=== PATIENT | male | born 1985 | race Caucasian/White ===

== ENCOUNTER 2017-11-01 00:59 | Emergency (ER) | payer SELFPAY ==
[2017-11-01 01:37] LABS: #Basophils 0.1 thou/uL (0.0-0.2); #Eosinphils 0.2 thou/uL (0.0-0.7); #Lymphocytes 2.8 thou/uL (1.20-3.40); #Neutrophils 14.1 thou/uL (1.40-6.50); %Basophils 0.5 % (0.0-1.0); %Eosinophils 1.2 % (0.0-10.0); %Lymphocytes 15.2 % (21.0-51.0); %Monocytes 5.7 % (0.0-10.0); %Neutrophils 77.4 % (42.0-75.0); Hemoglobin 16.6 g/dL (14.0-18.0); Mean Corpuscular HGB CONC 34.2 g/dL (32.0-36.0); Mean Corpuscular Hemoglobin 31.3 pg (27.0-31.0); Mean Corpuscular Volume 91.5 fl (80.0-94.0); Platelet Count 283 thou/uL (130-400); RBC Distribution Width 12.1 % (11.5-14.5); Red Blood Cell (RBC) Count 5.31 mill/uL (4.70-6.10); White Blood Cell (WBC) Count 18.3 thou/uL (4.8-10.8)
[2017-11-01 01:49] LABS: INR-International Normal Ratio 1.1; PTT 27.5 SEC (22.9-36.1); Prothrombin Time 14.2 SEC (12.0-14.7)
[2017-11-01 01:54] LABS: ALT (SGPT) 58 U/L (8-55); AST (SGOT) 83 U/L (5-34); Albumin 4.6 g/dL (3.5-5.0); Alkaline Phosphatase 76 U/L (40-150); Anion Gap 14 mmol/L (10-20); BUN (Urea Nitrogen) 6 mg/dL (8.9-20.6); Bilirubin, Total 0.4 mg/dL (0.2-1.2); Calc. Creatinine Clearance 0 mL/min (70-130); Calcium 9.2 mg/dL (7.8-10.44); Carbon Dioxide 24 mmol/L (22-29); Chloride 107 mmol/L (98-107); Estimated GFR-MDRD Greater than 90; Globulin 3.4 g/dL (2.4-3.5); Glucose 114 mg/dL (70-105); Lipase 158 U/L (8-78); Sodium 141 mmol/L (136-145)
[2017-11-01 01:59] LABS: Acetaminophen Less than 6.0 mcg/mL (10.0-30.0); Alcohol 223 mg/dL (Less than 10); Salicylate Less than 8.0 mg/dL (15.0-30.0)
[2017-11-01] MEDS ORDERED: Acetaminophen 500 MG TAB ONE (02:51)
[2017-11-01] MEDS ORDERED: Ketorolac Tromethamine 30 MG/ML VIAL ONE (02:51)
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
[2017-11-01] MEDS ORDERED: ISOVUE-370 76%-LOCM 1 ML ONE (13:52)
== END 2017-11-01 06:19 | disposition home or self-care (01) ==
LOC: ERS 00:59
DX: S20.212A Contusion of left front wall of thorax, initial encounter (principal); S20.211A Contusion of right front wall of thorax, initial encounter; F10.129 Alcohol abuse with intoxication, unspecified; H55.00 Unspecified nystagmus; S00.81XA Abrasion of other part of head, initial encounter; V48.5XXA Car driver injured in noncollision transport accident in traffic accident, initial encounter
CPT/HCPCS: 70450; 71260; 72125; 74177; 80053; 80307; 83690; 85025; 85610; 85730; 86850; 86900; 86901; 96374; G0390; J1885

== ENCOUNTER 2017-11-01 13:04 | Observation (INO) | payer OTHER, SELFPAY ==
[2017-11-01] MEDS ORDERED: Fentanyl 100 MCG/2 ML VIAL ONE (14:20)
[2017-11-01 14:24] LABS: #Basophils 0.1 thou/uL (0.0-0.2); #Eosinphils 0.3 thou/uL (0.0-0.7); #Lymphocytes 2.6 thou/uL (1.20-3.40); #Monocytes 1.2 thou/uL (0.11-0.59); #Neutrophils 10.7 thou/uL (1.40-6.50); %Basophils 0.5 % (0.0-1.0); %Lymphocytes 17.5 % (21.0-51.0); %Monocytes 8.3 % (0.0-10.0); %Neutrophils 71.8 % (42.0-75.0); Mean Corpuscular HGB CONC 33.5 g/dL (32.0-36.0); Mean Corpuscular Hemoglobin 30.7 pg (27.0-31.0); Mean Corpuscular Volume 91.5 fl (80.0-94.0); Mean Platelet Volume 7.2 fL (7.4-10.4); Platelet Count 274 thou/uL (130-400); RBC Distribution Width 12.2 % (11.5-14.5); Red Blood Cell (RBC) Count 5.21 mill/uL (4.70-6.10); White Blood Cell (WBC) Count 14.9 thou/uL (4.8-10.8)
[2017-11-01 14:48] LABS: Anion Gap 13 mmol/L (10-20); BUN (Urea Nitrogen) 9 mg/dL (8.9-20.6); Calc. Creatinine Clearance 0 mL/min (70-130); Calcium 9.5 mg/dL (7.8-10.44); Carbon Dioxide 26 mmol/L (22-29); Chloride 104 mmol/L (98-107); Estimated GFR-MDRD Greater than 90; Glucose 93 mg/dL (70-105); Potassium 4.1 mmol/L (3.5-5.1); Sodium 139 mmol/L (136-145)
[2017-11-01] MEDS ORDERED: Ketorolac Tromethamine 30 MG/ML VIAL ONE (16:26)
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
[2017-11-01] MEDS ORDERED: Dextrose 50% Abboject 50 ML SYRINGE SLOW IVP PRN (18:13)
[2017-11-01] MEDS ORDERED: Dextrose 5% in Water 1,000 ML IV PRN (18:13)
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
[2017-11-01] MEDS: Famotidine 20 MG TAB PO SCH (21:22)
[2017-11-01] MEDS ORDERED: Morphine 5 MG/ML SYRINGE SLOW IVP SCH (21:40)
[2017-11-01] MEDS ORDERED: traMADol HCl 50 MG TAB PO PRN (21:41)
[2017-11-01 22:02] VITALS: BMI 25.6
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
[2017-11-01] MEDS: Acetaminophen 500 MG TAB PO SCH (23:54)
[2017-11-01] MEDS: Ketorolac Tromethamine 30 MG/ML VIAL IVP SCH (23:54)
[2017-11-02] MEDS ORDERED: Ibuprofen 600 MG TAB PO PRN (01:00)
[2017-11-02] MEDS: traMADol HCl 50 MG TAB PO PRN ×3 (02:38→13:07)
[2017-11-02] MEDS: Acetaminophen 500 MG TAB PO SCH ×2 (05:40→11:30)
[2017-11-02] MEDS: Ketorolac Tromethamine 30 MG/ML VIAL IVP SCH (05:40)
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
[2017-11-02] MEDS: Ibuprofen 600 MG TAB PO SCH ×2 (08:00→13:07)
[2017-11-02] MEDS: Famotidine 20 MG TAB PO SCH (08:00)
[2017-11-02] MEDS ORDERED: Folic Acid 1 MG TAB PO SCH (09:00)
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
[2017-11-02 10:22] LABS: #Basophils 0.1 thou/uL (0.0-0.2); #Eosinphils 0.3 thou/uL (0.0-0.7); #Lymphocytes 1.9 thou/uL (1.20-3.40); #Monocytes 0.9 thou/uL (0.11-0.59); #Neutrophils 6.7 thou/uL (1.40-6.50); %Basophils 0.6 % (0.0-1.0); %Eosinophils 2.9 % (0.0-10.0); %Lymphocytes 19.5 % (21.0-51.0); %Monocytes 9.1 % (0.0-10.0); %Neutrophils 67.9 % (42.0-75.0); Hemoglobin 14.9 g/dL (14.0-18.0); Mean Corpuscular HGB CONC 33.3 g/dL (32.0-36.0); Mean Corpuscular Volume 92.9 fl (80.0-94.0); Mean Platelet Volume 7.1 fL (7.4-10.4); Platelet Count 255 thou/uL (130-400); White Blood Cell (WBC) Count 9.9 thou/uL (4.8-10.8)
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
[2017-11-02 17:24] VITALS: BP 127/76; TEMP 98.2
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
== END 2017-11-02 15:47 | disposition home or self-care (01) ==
LOC: ERS 13:04 → SURG A 20:00
PROVIDERS: ADMIT Surgery; ATTEND Surgery
DX: S36.115A Moderate laceration of liver, initial encounter (principal); S22.059A Unspecified fracture of T5-T6 vertebra, initial encounter for closed fracture; F17.210 Nicotine dependence, cigarettes, uncomplicated; F17.290 Nicotine dependence, other tobacco product, uncomplicated; G89.11 Acute pain due to trauma; V89.2XXA Person injured in unspecified motor-vehicle accident, traffic, initial encounter; Z72.89 Other problems related to lifestyle
CPT/HCPCS: 36415; 72072; 85025; 96374; 96375; 96376; J2270; G0378; J1885; J3010; L0639

== ENCOUNTER 2017-11-23 14:32 | Outpatient (CLI) | payer OTHER ==
--- NOTE | 2017-11-23 15:38 | RAD ---
THORACIC SPINE THREE VIEWS: 11/23/17 HISTORY: Compression fracture. Followup. COMPARISON: 11/02/17. FINDINGS: There are twelve thoracic type vertebrae. Pedicles are intact. Minimal compression of the T4 and T5 s uperior end plates is unchanged from the previous exam. Other vertebral body heights and alignment ar e maintained. IMPRESSION: Stable radiographic appearance of the mild mid thoracic vertebral body compressions. POS: [facility]
== END 2017-11-23 14:33 | disposition home or self-care (01) ==
LOC: SCSRAD 14:32
PROVIDERS: ATTEND Neurological Surgery
DX: S22.050D Wedge compression fracture of T5-T6 vertebra, subsequent encounter for fracture with routine healing (principal); S22.040D Wedge compression fracture of fourth thoracic vertebra, subsequent encounter for fracture with routine healing
CPT/HCPCS: 72070